=== PATIENT | male | born 1960 | race Two or more races ===

== ENCOUNTER → 2022-08-30 | Outpatient (CLI) | payer MEDICAID | END | disposition home or self-care (01) | LOC: LAB 08:17 | PROVIDERS: ATTEND Internal Medicine Pulmonary Disease | DX: Z01.812 Encounter for preprocedural laboratory examination (principal); Z20.822 Contact with and (suspected) exposure to COVID-19 | CPT/HCPCS: 36415; 87426 ==

== ENCOUNTER → 2022-08-30 | Outpatient (CLI) | payer MEDICAID ==
[~2022-08-30] MED LIST: ALBUTEROL MEDNEB 2.5 mg/3ml NEB ONE
== END | disposition home or self-care (01) ==
LOC: RT 12:19
PROVIDERS: ATTEND Internal Medicine Pulmonary Disease
DX: J44.9 Chronic obstructive pulmonary disease, unspecified (principal)
CPT/HCPCS: 94060; 94727; 94729